=== PATIENT | male | born 1965 | race Caucasian/White ===

== ENCOUNTER 2023-08-08 15:29 | Emergency (ER) | payer BC, OTHER ==
[~2023-08-08] VITALS: Ht 162.6 cm; Wt 72.7 kg
[2023-08-08 15:35] VITALS: PULSE 110; RESP 33; O2SAT 91
[2023-08-08] MEDS ORDERED: SODIUM CHLORIDE 0.9% 1,000 ML IV ONE ×4 (15:45→22:00)
[2023-08-08 16:00] LABS: Hematocrit 38.3 % (41.0-53.0); Hemoglobin 11.5 g/dL (13.5-17.5); Mean Corpuscular Hemoglobin 27.2 pg (28.0-32.0); Mean Corpuscular Volume 90.7 fL (80.0-100.0); Red Blood Cells 4.22 10^6/uL (4.5-5.90); White Blood Cell 4.4 10^3/uL (4.4-10.8)
[2023-08-08 16:02] LABS: Red Cell Distribution Width 21.2 % (11.8-14.3)
[2023-08-08 16:04] LABS: Basophils % (manual) 0 (0.0-2.0); Blast Cells 0; Eosinophils % (manual) 0 (0-7); Metamyelocytes % 0; Myelocytes % 0; Promyelocytes % 0; Reactive Lymphocytes 0
[2023-08-08 16:20] LABS: Albumin 4.1 g/dL (3.2-4.8); Alkaline Phosphatase 101 U/L (46-116); Anion Gap 19 (5-15); BUN/Creatinine Ratio 14.4 (10.0-20.0); Bilirubin, Total 0.5 mg/dL (0.2-1.0); Blood Urea Nitrogen 37 mg/dL (9-23); Carbon Dioxide 18 mmol/L (20-30); Chloride 109 mmol/L (98-107); Glucose 131 mg/dL (74-106); Potassium 5.3 mmol/L (3.5-5.1); Sodium 146 mmol/L (136-145); Total Protein 6.3 g/dL (5.7-8.2)
[2023-08-08 16:31] LABS: Aspartate Aminotransferase 3501 U/L (13-40)
[2023-08-08 16:44] LABS: Alanine Aminotransferase 2356 U/L (7-40)
[2023-08-08 16:56] LABS: Lactic Acid w/Reflex 9.9 mmol/L (0.4-2.0)
[2023-08-08 17:05] LABS: Band Neutrophils % (manual) 5; Lymphocytes % (manual) 15 (10.0-50.0); Monocytes % (manual) 14 (0-12)
[2023-08-08 17:06] LABS: Anisocytosis Moderate; Large Platelets FEW; Platelet Estimate Adequate
[2023-08-08 17:08] LABS: Magnesium 2.5 mg/dL (1.6-2.6)
[2023-08-08 18:06] LABS: INR 1.48 (0.9-1.15); Prothrombin Time 15.1 sec (9.3-11.8)
[2023-08-08 18:54] LABS: Acetaminophen < 2.0 UG/ML (10.0-20.0)
[2023-08-08 18:58] LABS: Salicylate < 3.0 mg/dL (2.8-20.0)
[2023-08-08 19:35] VITALS: PULSE 86; RESP 11; O2SAT 100
[2023-08-08] MEDS ORDERED: ASPirin 300 MG RECTAL SUPP PR ONE (19:45)
[2023-08-08] MEDS ORDERED: ONDANSETRON HCL 4 MG/2 ML VIAL IV PRN (21:00)
[2023-08-08] MEDS ORDERED: ACETAMINOPHEN 325 MG TAB PO PRN (21:00)
[2023-08-08] MEDS ORDERED: HYDROcodone-ACET 5/325MG TAB PO PRN (21:00)
[2023-08-08] MEDS ORDERED: NITROGLYCERIN 0.4 MG SL TAB SL PRN (21:00)
[2023-08-08] MEDS ORDERED: MORPHINE SULFATE INJ 2 MG/ml SYRG IV PRN (21:00)
[2023-08-08 21:39] LABS: Albumin 3.3 g/dL (3.2-4.8); Alkaline Phosphatase 87 U/L (46-116); Anion Gap 12 (5-15); BUN/Creatinine Ratio 13.3 (10.0-20.0); Bilirubin, Total 0.4 mg/dL (0.2-1.0); Blood Urea Nitrogen 30 mg/dL (9-23); Carbon Dioxide 19 mmol/L (20-30); Chloride 115 mmol/L (98-107); Glucose 119 mg/dL (74-106); Sodium 146 mmol/L (136-145); Total Protein 5.4 g/dL (5.7-8.2)
[2023-08-08 21:44] LABS: Urine Epithelial Cast None Seen /hpf (<5)
[2023-08-08 21:50] LABS: Aspartate Aminotransferase 5951 U/L (13-40)
[2023-08-08 21:51] LABS: Alanine Aminotransferase 3059 U/L (7-40); Creatine Kinase IFCC 2666 U/L (46-171)
[2023-08-08 21:56] LABS: Urine Amorphous Crystal FEW /hpf (None Seen); Urine Bacteria FEW /hpf (None Seen); Urine Blood 3+ /uL (Negative); Urine Clarity HAZY (Clear); Urine Color Yellow (Yellow); Urine Hyaline Cast FEW /lpf (0 - 2); Urine Mucus FEW (None Seen); Urine Protein, UAD 2+ (Negative); Urine Specific Gravity 1.025 (1.001-1.035); Urine Sperm PRESENT /hpf (None Seen); Urine Urobilinogen Normal (Negative); Urine WBC 2 /hpf (0 - 3); Urine pH 5.5 (5.0-8.0)
[2023-08-08 22:04] LABS: Amphetamine Screen, Urine Neg (NEGATIVE); Barbiturate Scree,Urine Neg (NEGATIVE); Benzodiazephine Screen, Urine Neg (NEGATIVE); Cannabinoid Screen, Urine Neg (NEGATIVE); Cocaine Screen, Urine Neg (NEGATIVE); Opiate Scree,Urine Neg (NEGATIVE); Phencyclidine Screen, Urine Neg (NEGATIVE)
[2023-08-08] MEDS ORDERED: D5W/SOD CHLO 0.9% 1,000 ML IV ONE (23:00)
[2023-08-08 23:01] VITALS: BP 120/69; PULSE 86; RESP 11; TEMP 98.9; O2SAT 94
== END 2023-08-08 23:11 | disposition left against medical advice (07) ==
LOC: ER 15:29 → EDBD 15:29 → TELE 20:59 → UNDOADMIN 20:59 → ER 21:04 → TELE 21:04 → ER 23:11
DX: I21.4 Non-ST elevation (NSTEMI) myocardial infarction (principal); I10 Essential (primary) hypertension; E86.0 Dehydration; R79.89 Other specified abnormal findings of blood chemistry; R40.4 Transient alteration of awareness; Z98.890 Other specified postprocedural states; Z85.9 Personal history of malignant neoplasm, unspecified; Z79.899 Other long term (current) drug therapy
CPT/HCPCS: 36415; 70450; 71045; 80053; 80307; 80329; 81001; 82140; 82550; 82962; 83605; 83735; 84484; 85007; 85027; 85610; 93005; 96360; 96361; 99285; J7030